=== PATIENT | female | born 1950 | race Caucasian/White ===

== ENCOUNTER 2018-05-03 07:49 | Inpatient (IN) ==
--- NOTE | 2018-05-02 18:00 | MH ---
cc: Red Fabian MD DATE OF ADMISSION: 05/03/2018 ADMITTING DIAGNOSIS: Osteoarthritis of the right knee. HISTORY OF PRESENT ILLNESS: The patient is a 67-year-old white female who has experienced pain of her right knee of at least 1-1/2 years' duration. She had initially presented to the undersigned physician in 08/2016 complaining of pain about her right knee unrelated to injury or unusual activity. She had undergone previous orthopedic evaluation at that time. X-ray studies apparently reported chondrocalcinosis, but otherwise no significant abnormality being identified. She was treated with a cortisone injection and prescribed physical therapy, but experienced persistent pain about her knee, for which she later underwent an MRI scan evaluation and was diagnosed as having a complex tear of the lateral meniscus with chondromalacia and effusion, and pain about her right knee. The patient underwent arthroscopic surgery in 08/2016 and initially was able to experience some trend of improvement, but with the passage of time she began to note a gradual recurrence of pain about her right knee that began to interfere with all activities of daily living. She returned to the office in the more recent past, indicating that she was having ongoing difficulty about her right knee and felt that she was ready to proceed with a more definitive course of treatment. Her x-ray studies did confirm the presence of an arthritic involvement, especially involving the lateral compartment, for which treatment options were reviewed. The pros and cons of continuing with conservative management versus operative intervention that would involve total knee arthroplasty were outlined in detail. Emphasis was again made regarding the fact that the decision to proceed with surgery would be left entirely to the patient's discretion. The patient readily admitted that she felt she had progressed to that point in time and was ready to proceed accordingly and, in compliance with her wishes, she was scheduled for admission in order that the above be accomplished. PAST MEDICAL HISTORY, HOSPITALIZATIONS, AND SURGERIES: In addition to the arthroscopic surgery of her right knee as described, have included lumbar fusion, abdominal hysterectomy, reduction mammoplasty, tonsillectomy, colonoscopy, bilateral cataract excisions, laparoscopic cholecystectomy, and medical management of a TIA without associated with residual. MEDICAL ILLNESSES: Include hypothyroidism, elevated cholesterol, and acid reflux. CURRENT MEDICATIONS: 1. L-thyroxine 175 mcg daily. 2. Wellbutrin 150 mg twice daily. 3. Lovastatin 20 mg daily. 4. Flonase 50 mg 2 sprays to each nostril daily. 5. Ipratropium 0.06% 1 spray to each nostril daily. 6. Chewable aspirin 81 mg daily. 7. Wild Yam 220 mg 1-2 times daily. ALLERGIES: THE PATIENT INDICATES MULTIPLE DRUG ALLERGIES INCLUDING PERCOCET, WHICH HAS CAUSED ITCHING; ERYTHROMYCIN AND SULFA WELL PENICILLIN HAVE CAUSED A RASH FORMATION. THE PATIENT HAS TOLERATED CODEINE FOR PAIN MANAGEMENT AND INDICATES NO PRIOR HISTORY OF PROBLEMS WITH MORPHINE WELL. REVIEW OF SYSTEMS: She does wear glasses. No headache, seizure, or syncope. Sinus congestion secondary to environmental agents. No epistaxis. Diminished auditory acuity. No tinnitus. No bleeding gums or dysphagia. No cough, shortness of breath, upper respiratory infection, pneumonia, or tuberculosis. No angina or heart disease. Appetite good. Bowel movements regular. No hepatitis, ulcers, or hemorrhoids. She is status post cholecystectomy. Positive history for urinary tract infection, kidney stones with spontaneous passage, fracture right ankle, and previous psychiatric intervention for depression. Her remaining review of systems is unremarkable and noncontributory. FAMILY HISTORY: 50 years, 68 years of age and in good health. One son and 1 daughter indicated to be in good health. FAMILY HISTORY: Positive for diabetes, heart disease, and lung cancer. SOCIAL HISTORY: The patient completed a high school education with vocational training thereafter. She has been employed as a nurse. Denies active use of tobacco for greater than 25 years, but had been a 15-20 year user in the past. Ethanol consumption on an occasional basis. PHYSICAL EXAMINATION: VITAL SIGNS: Height 5 feet 3 inches, weight 188 pounds. GENERAL: An alert, oriented, responsive 67-year-old white female who sits quietly upon the examination table with no apparent distress. HEAD, EARS, EYES, NOSE, AND THROAT: Pupils are equally round and reactive to light. Extraocular movements full. Sclerae are clear. External nares clear. External auditory canals clear. Dental intact. Mucous membranes pink and moist. Pharynx clear. NECK: Supple. Active range of motion with no appreciable pain. Carotid pulses palpable bilaterally. Trachea midline. Thyroid without enlargement. LUNGS: Clear to auscultation and percussion. No CVA tenderness. No discomfort throughout the dorsal lumbar spine. HEART: Regular rate and rhythm. No murmur or gallop. ABDOMEN: Soft, nontender, bowel sounds present. PELVIC: Per primary care physician. EXTREMITIES: Right knee, no obvious swelling or effusion. There is slight lateral joint line tenderness without palpable deformity. Apprehension and compression sign negative. A [id number] range of motion with discomfort at the extreme of flexion. No associated crepitation. No collateral ligamentous laxity. Jigna test and drawer sign negative. Pivot shift and Shea's sign positive for lateral compartment pain. Straight leg raising unremarkable at 80 degrees. Satisfactory mobility of the right hip with no associated pain. Mild antalgic gait. NEUROLOGIC: Cranial nerves 2-12 grossly intact. IMPRESSION: Osteoarthritis, right knee. PLAN: Right total knee arthroplasty: The nature of the planned surgical procedure, the potential complications and risks associated, the expectations of surgery, and the consent form were thoroughly reviewed with the patient in the presence of her prior to admission to the hospital. Kiarra has indicated her full understanding regarding all of the above and given consent to proceed with treatment as outlined. Medical evaluation and clearance for surgery completed by her primary care physician, Dr. Resendez. MD ELLIOT Yu/mendez/philip , 05:00 PM , 05:13 PM
[2018-05-03] MEDS ORDERED: Chlorhexidine Gluconate 2% 1 Pack (2 Cloths) TOPICAL SCH (08:30)
[2018-05-03] MEDS ORDERED: Metoprolol Tartrate 25 MG Tablet PO SCH (08:30)
[2018-05-03] MEDS ORDERED: Bupivacaine Liposomal PF 1.3% Inj 20 ML Vial ONE (08:34)
[2018-05-03] MEDS ORDERED: Vancomycin Inj 1 GM/200 ML PIGGYBACK IV.SIG SCH (09:00)
[2018-05-03] MEDS ORDERED: Sodium Chlor 0.9% Inj 500 ML IV.SIG SCH (09:00)
[2018-05-03] MEDS ORDERED: fentaNYL Citrate Inj 250 MCG/5 ML Ampul ONE (09:38)
[2018-05-03] MEDS ORDERED: fentaNYL Citrate Inj 100 MCG/2 ML Ampul ONE (09:38)
[2018-05-03] MEDS ORDERED: Famotidine PF Inj 20 MG/2 ML Vial ONE (09:38)
[2018-05-03] MEDS ORDERED: Bupivacaine PF 0.5% Inj 30 ML Vial ONE (09:41)
[2018-05-03] MEDS ORDERED: ROPIVACAINE 0.5% P-ARTICULR SCH ×5 (10:00)
[2018-05-03] MEDS ORDERED: Tranexamic Acid Inj 1,000 MG in Sodium Chlor 0.9% Inj 100 ML IV.SIG SCH ×2 (10:00→13:00)
[2018-05-03] MEDS ORDERED: KETOROLAC P-ARTICULR SCH ×5 (10:00)
[2018-05-03] MEDS ORDERED: SODIUM CHLOR 0.9% P-ARTICULR SCH ×5 (10:00)
[2018-05-03] MEDS ORDERED: [UNRECOGNIZED DRUG - OTHER] P-ARTICULR SCH ×5 (10:00)
[2018-05-03] MEDS ORDERED: Ketorolac Inj 30 MG/ML (IVP) Vial IV.PUSH ONE (12:00)
[2018-05-03] MEDS ORDERED: Neostigmine Inj 5 MG/5 ML Syringe IV.PUSH ONE (12:00)
[2018-05-03] MEDS ORDERED: Lidocaine PF 1% Inj 5 ML Syringe INFILTRATN ONE (12:00)
[2018-05-03] MEDS ORDERED: Labetalol HCl Inj 100 MG/20 ML Vial IV.CONT ONE (12:00)
[2018-05-03] MEDS ORDERED: Glycopyrrolate Inj 1 MG/5 ML Syringe IV.PUSH ONE (12:00)
[2018-05-03] MEDS ORDERED: Bisacodyl 10 MG Supp RECTAL PRN (12:39)
[2018-05-03] MEDS ORDERED: Aluminum/Magnesium/Simethacone Susp 30 ML UDC PO PRN (12:39)
[2018-05-03] MEDS ORDERED: Post-op Orders (for Pharmacy) OTHER STA (12:39)
[2018-05-03] MEDS ORDERED: Tranexamic Acid Inj 1,000 MG in Sodium Chlor 0.9% Inj 100 ML IV.SIG ONE (12:39)
[2018-05-03] MEDS ORDERED: Acetaminophen 325 MG Tablet PO PRN (12:39)
[2018-05-03] MEDS ORDERED: Naloxone Inj 0.4 MG/ML Vial IV.PUSH PRN ×2 (12:39→14:17)
[2018-05-03] MEDS ORDERED: *morphine SULFATE 4 MG/ML PERIprocedure ONLY ONE (13:00)
[2018-05-03] MEDS ORDERED: Morphine Inj 30 MG/30 ML PCA.VIAL PCA ONE (13:13)
--- NOTE | 2018-05-03 13:26 | MP ---
cc: Red Fabian MD DATE OF OPERATION: 05/03/2018 DATE OF PROCEDURE: 05/03/2018 PREOPERATIVE DIAGNOSIS: Osteoarthritis, right knee. POSTOPERATIVE DIAGNOSIS: Osteoarthritis, right knee. OPERATION: Right total knee arthroplasty. SURGEON: Red Fabian MD ANESTHESIA: General endotracheal. INDICATIONS: A 67-year-old white female with a 1-1/2-year history of right knee pain, onset being unrelated to injury or unusual activity. She had undergone previous orthopedic evaluation and initially was diagnosed as having chondrocalcinosis. She was treated with cortisone injection and prescribed physical therapy, but experienced persistent pain and later completed an MRI scan, being diagnosed as having a complex tear of the lateral meniscus with chondromalacia and effusion and pain of the knee. She subsequently underwent arthroscopic surgery in 2016 and initially was able to experience some trend of improvement, but with the passage of time began to note gradual recurrence of pain that began to interfere with all activities of daily living. She had returned to the office more recently indicating that she was having ongoing difficulty about her right knee and felt that she was ready to proceed with a more definitive course of treatment. Her x-ray studies confirmed the presence of arthritic involvement, especially about the lateral compartment, for which treatment options were reviewed. The pros and cons of continuing with conservative management versus operative intervention that would involve total knee arthroplasty were outlined in detail. Emphasis was made regarding the fact that the decision to proceed with surgery would be left entirely to the patient's discretion. The patient readily admitted that she had progressed to that point in time, was ready to proceed accordingly and in compliance with her wishes she was scheduled for admission in order that the above be accomplished. FORMAT: Following the induction of satisfactory general anesthesia by endotracheal intubation as completed per the Department of Anesthesia, a tourniquet was established around the proximal portion of the right lower extremity. The extremity proper was isolated with a U-drape, thereafter being prepped with Betadine solution and draped into a sterile field in the routine manner. Prior to initiation of the actual procedure, the standard timeout protocol was completed. All parameters were appropriately addressed and confirmed by operating room personnel. The extremity was elevated for approximately 1 minute and the tourniquet thus inflated to 250 mmHg pressure. A sharp skin incision was initiated midline over the anterior aspect of the knee and developed through underlying subcutaneous tissue with hemostasis maintained by electrocautery. By deepening dissection, the anterior capsule was exposed, the medial capsulotomy completed and the patella subluxed in a lateral orientation. Examination of the joint space revealed tricompartmental degenerative changes, especially being most pronounced about the lateral compartment where there was significant erosion of articular cartilage primarily involving the femoral condyle but to a lesser degree the tibial plateau. The articular surface of the patella was resected with power saw. The 3-hole guide was utilized for establishing post-holes. The anterior cruciate ligament as well as medial and lateral meniscus structures were sharply excised. A centering hole was placed in the distal aspect of the femur, allowing positioning of the intramedullary guide. The distal femoral cutting jig was attached and the distal femur resected. AP measurement noted 62.5 mm sizing to be appropriate. The matching cutting block was positioned. Anterior, posterior and chamfer cuts were completed. The tibial plateau was thereafter subluxed in an anterior orientation allowing positioning of the extramedullary guide. The tibial plateau was resected and measured with 71 mm sizing determined to be satisfactory. Trial reduction followed utilizing a 62.5 mm anatomic femoral component, a 71 mm tibial base with a 10 mm bearing insert. The knee was readily brought to full extension. There was no laxity with varus or valgus stress at both 0 and 90 degrees flexed posture. Orientation was confirmed as being appropriate with measurement of the pelvic guide through the mechanical access of the knee. A trial reduction followed utilizing a 31 mm standard patellar button, once again good tracking noted with no tendency towards subluxation. All trial components being removed, the remaining portion of the proximal tibia was prepared for insertion of the permanent component. The joint space was thoroughly lavaged with pulsating antibiotic solution, hemostasis maintained by electrocautery. An autogenous bone plug was inserted into the distal femoral guide hole and thereafter a preparation of [place] bone cement was utilized in inserting knee components in a sequential fashion, which included a 71 mm fixed cruciate tibial plate to which a 10 mm Vanguard tibial bearing insert was secured with locking brock. The 62.5 mm Vanguard femoral component was firmly seated onto the distal femur, excess cement being removed. The knee was brought to full extension and thereafter, the 31 mm standard 3 post-patellar button was attached and maintained in place with patellar clamp while cement hardening was completed. Final range of motion assessment noted good tracking and stability throughout the knee. Irrigation was repeated with hemostasis maintained. Autovac drain tubes were inserted through superior stab wounds. The capsule was repaired with 0 Vicryl suture. The remaining portion of the wound was closed in layers in the routine manner, skin margins being reapproximated with a running subcuticular 3-0 Vicryl suture over which Steri-Strips were applied. Xeroform gauze and a bulky dry sterile dressing were placed. The tourniquet was deflated after 40 minutes of tourniquet time, the extremity being supported in a canvas knee splint. Anesthesia was discontinued. She was thereafter transferred to a hospital bed and returned to the recovery room in satisfactory condition, having tolerated her operative procedure well. Estimated blood loss was approximately 100 mL as determined per Anesthesia. All implants were of the [employer] bag machine adjuster. MD ELLIOT Yu/SB , 12:23 PM , 01:13 PM
--- NOTE | 2018-05-03 13:35 | XR ---
EXAM DATE: 05/03/2018 1:20 PM EDT AGE/SEX: 67 years / Female INDICATIONS: Post op. Right total knee replacement. CLINICAL DATA: This is the patient's initial encounter. Patient reports that signs and symptoms have been present for 1 day and indicates a pain score of 9/10. MEDICAL/SURGICAL HISTORY: None. None. COMPARISON: POI, XR KNEE COMPLETE, RIGHT, 07/15/2016. . FINDINGS: AP and lateral views of the knee were obtained and demonstrate the patient is status post arthroplast y. The distal femoral and tibial components are intact and in normal alignment. There are postoperati ve changes involving the patella. Surgical drains are noted anteriorly with soft tissue swelling. CONCLUSION: SPECT the postoperative changes status post arthroplasty. Electronically signed by: Abdiaziz Sharp MD 05/03/2018 1:34 PM EDT
[2018-05-03] MEDS ORDERED: Morphine Inj 30 MG/30 ML PCA.VIAL PCA PRN (14:30)
[2018-05-03] MEDS ORDERED: ATROVENT 0.06% NASAL PRN (15:00)
--- NOTE | 2018-05-03 17:34 | P.CON ---
History of Present Illness Service: Orthopedic service Consult date: 05/03/18 Requesting Physician: Red Fabian Reason for Consult: Medical management Primary Care Provider: Juan Carlos Wallace MD Chief Complaint: Right knee pain History of Present Illness: Patient is a very pleasant 67-year-old female with history of hypothyroidism, depression, hyperlipidemia with history of osteoarthritis of the right knee who was admitted under orthopedic service today and underwent right total knee arthroplasty. Per patient patient has been dealing with this pain the right knee on and off for the past 2 years. In the past had arthroscopic surgery. Patient still independent with ADLs and walking however increasing pain in lately with walking prompted this procedure. [facility] consulted for medical management. Review of Systems Constitutional: Denies anorexia, Denies body ache(s), Denies chills, Denies daytime sleepiness, Denies excessive sweating, Denies fatigue, Denies fever(s), Denies headache(s), Denies increased appetite, Denies lack of energy, Denies malaise, Denies night sweats, Denies weakness, Denies weight gain, Denies weight loss, Denies other Eyes: Denies blind spots, Denies blurry vision, Denies bulging eyes, Denies change in vision, Denies double vision, Denies discharge, Denies dry eyes, Denies floaters, Denies irritation, Denies itchy eyes, Denies loss of vision, Denies pain, Denies requires corrective lenses, Denies sensitivity to light, Denies other Ears, Nose, Mouth, and Throat: Denies abnormal hearing, Denies bleeding gums, Denies bad breath, Denies change in voice, Denies dental pain, Denies difficulty swallowing, Denies dizziness, Denies dry mouth, Denies ear discharge , Denies ear pain, Denies facial pain, Denies headache(s), Denies hearing loss, Denies hoarseness, Denies lip swelling, Denies nosebleed, Denies mouth lesions, Denies mouth pain, Denies nasal congestion, Denies nasal discharge, Denies nasal obstruction, Denies nasal trauma, Denies neck lump, Denies neck pain, Denies nose pain, Denies pain with swallowing, Denies poor balance, Denies post nasal drip, Denies ringing in the ears, Denies sinus pain, Denies sinus pressure , Denies sore throat, Denies throat swelling, Denies tongue swelling, Denies other Respiratory: Denies change in phlegm color, Denies chest congestion, Denies cough, Denies coughing up blood, Denies excessive phlegm production, Denies pain on inspiration, Denies pain with cough, Denies shortness of breath, Denies shortness of breath with activity, Denies snoring, Denies stridor, Denies wheezing, Denies other Gastrointestinal: Denies abdominal pain, Denies belching, Denies black, tarry stools, Denies bloating, Denies bright, red blood in stools, Denies change in bowel habits, Denies constant urge to pass stool, Denies change in stools, Denies coffee ground vomit, Denies constipation, Denies cramping, Denies difficulty swallowing, Denies excessive passing of gas, Denies feeling full early, Denies heartburn, Denies incontinent of stools, Denies loose stools, Denies nausea, Denies pain with swallowing, Denies vomiting, Denies vomiting blood, Denies other Comments: With occasional reflux symptoms. Genitourinary: Denies abnormal periods, Denies abnormal vaginal bleeding, Denies absent period, Denies bleeding between periods, Denies blood in urine, Denies difficulty starting urination, Denies difficulty urinating, Denies dribbling after urination, Denies frequent nighttime urination, Denies genital itching, Denies genital lesions, Denies heavy periods, Denies hot flashes, Denies light periods, Denies nipple discharge, Denies painful intercourse, Denies painful periods, Denies painful urination, Denies pelvic pain, Denies prolapse symptoms, Denies sexual problems, Denies side pain, Denies urinary incontinence, Denies urinary urgency, Denies vaginal discharge, Denies vaginal dryness, Denies vaginal odor, Denies vaginal itching, Denies other Musculoskeletal: Reports joint pain (Right knee pain worsening) Skin/Breast: Denies acne, Denies bleeding lesions, Denies boil, Denies breast swelling, Denies breast skin changes, Denies breast pain, Denies breast lump, Denies change in breast shape, Denies change in hair, Denies change in skin color, Denies changing lesions, Denies dry skin, Denies excessive hair growth, Denies hair loss, Denies itching, Denies lesions, Denies nail changes, Denies new lesions, Denies nipple discharge, Denies non-healing lesions, Denies redness , Denies sensitivity to light, Denies rash, Denies skin pain, Denies skin ulcer , Denies sores, Denies stretch silva, Denies unusual bruising, Denies wounds, Denies yellowing of the skin, Denies other Neurologic: Denies abnormal hearing, Denies abnormal movements, Denies abnormal speech, Denies abnormal walking, Denies behavioral changes, Denies burning sensations, Denies confusion, Denies dizziness, Denies fainting, Denies frequent falls, Denies headache(s), Denies lack of coordination, Denies localized weakness, Denies loss of vision, Denies memory loss, Denies numbness, Denies other visual disturbances, Denies radiating pain, Denies restless legs, Denies convulsions, Denies seizure-like activity, Denies sensory deficit, Denies tingling, Denies tingling/numbness/burning sensations, Denies tremor(s), Denies unsteadiness, Denies weakness, Denies other Psychiatric: Denies abnormal sleep pattern, Denies anxiety, Denies behavioral changes, Denies change in appetite, Denies change in sex drive, Denies confusion , Denies depression, Denies difficulty concentrating, Denies hearing things others do not hear, Denies hopelessness, Denies irritability, Denies lack of enjoyment, Denies memory loss, Denies mood swings, Denies panic attacks, Denies paranoia, Denies seeing things others do not see, Denies sensing things others do not sense, Denies tactile hallucinations, Denies thoughts of hurting/killing others, Denies thoughts of hurting/killing yourself, Denies other Endocrine: Denies cold intolerance, Denies excessive sweating, Denies flushing, Denies heat intolerance, Denies increased hunger, Denies increased thirst, Denies increased urination, Denies rapid, pounding, or irregular heartbeat, Denies other Hematologic/Lymphatic: Denies easy bleeding (Nasal allergy), Denies easy bruising, Denies enlarged lymph nodes, Denies other PMFSH - History History Provided By: Patient - Medical / Surgical Hx Neg / Unobtainable Medical Problems Denied: Yes - Medical History Medical History: Medical History (Last Reviewed 05/03/18 @ 16:58 by Lisa Dorantes PT) Arthritis Depression GERD (gastroesophageal reflux disease) H/O recurrent transient ischemic attacks High cholesterol History of right tennis elbow Seasonal allergies Thyroid disease - Surgical History Surgical History: Surgical History (Last Reviewed 05/03/18 @ 16:58 by Lisa Dorantes, PT) H/O hand surgery H/O arthroscopy of right knee H/O bilateral breast reduction surgery H/O spinal fusion History of bilateral carpal tunnel release History of cholecystectomy History of partial hysterectomy History of tonsillectomy Status post cataract extraction of both eyes with insertion of intraocular lens - Tobacco History Second Hand Smoke Exposure: No Tobacco Use In Past 30 Days: Yes (Quit 20 years ago) Smoking Status: Former smoker Tobacco Type: Cigarettes - Alcohol History How Often Do You Have a Drink Containing Alcohol: 2 to 4 times a month - Substance Use History Substance History: No History of Abuse - Travel History Recent Travel in the [place] Within the Last 8 Weeks: No Recent Travel Out of the Country Within the Last 8 Weeks: No Medications and Allergies Active Medications: Active Medications Acetaminophen (Tylenol) 650 mg PO Q6H PRN PRN Reason: FEVER > 102 F Hydrocodone Bitart/Acetaminophen ([place] 5/325) 1 tab PO Q4H PRN PRN Reason: PAIN LESS THAN 5 ON SCALE Hydrocodone Bitart/Acetaminophen ([place] 5/325) 2 tab PO Q6H PRN PRN Reason: PAIN SCALE 5 TO 10 Al Hydrox/Mg Hydrox/Simethicone (Mag-Al Plus Susp Liq) 30 ml PO Q6H PRN PRN Reason: INDIGESTION Al Hydroxide/Mg Hydroxide (Milk Of Magnesia Liq) 30 ml PO BID PRN PRN Reason: Mild Constipation Aspirin (Aspirin) 325 mg PO BID [facility] Bisacodyl (Dulcolax Supp) 10 mg RECTAL DAILY PRN PRN Reason: SEVERE CONSITIPATION Bupropion HCl (Wellbutrin Sr) 150 mg PO DAILY [facility] Chlorhexidine Gluconate (Chlorhexidine 2% Cloth) 3 pack TOPICAL TESTING DIRECTOR [facility] Stop: 05/06/18 08:29 Last Admin: 05/03/18 08:30 Dose: 3 pack Fluticasone Propionate (Flonase Nasal Immaculata) 2 spray EACH NARE DAILY [facility] Lactated Ringer's (Lr 1000 Ml Inj) 1,000 mls @ 30 mls/hr IV.SIG .Q24H [facility] Stop: 05/06/18 08:29 Last Infusion: 05/03/18 11:04 Dose: Infused Sodium Chloride (Ns Inj) 500 mls @ 30 mls/hr IV.SIG .Q10H [facility] Stop: 05/06/18 08:29 Tranexamic Acid 1,000 mg/ (Sodium Chloride) 110 mls @ 200 mls/hr IV.SIG ONCE [facility] Stop: 05/03/18 18:59 Last Admin: 05/03/18 13:20 Dose: 200 mls/hr Vancomycin/Sodium Chloride (Vancomycin Inj) 1 gm in 200 mls @ 200 mls/hr IV.SIG TESTING DIRECTOR [facility] Stop: 05/07/18 08:59 Last Infusion: 05/03/18 11:04 Dose: Infused Lactated Ringer's (Lr 1000 Ml Inj) 1,000 mls @ 80 mls/hr IV.CONT .[id number] [facility] Last Admin: 05/03/18 13:26 Dose: 80 mls/hr Vancomycin HCl 1,000 mg/ (Sodium Chloride) 250 mls @ 250 mls/hr IV.SIG Q12H [facility] Stop: 05/04/18 10:59 Morphine Sulfate (Morphine Inj) 30 mg in 30 mls @ 0 mls/hr FOREIGN EXCHANGE POSITION CLERK UNSCH PRN PRN Reason: per FOREIGN EXCHANGE POSITION CLERK parameters Stop: 05/04/18 14:29 Last Admin: 05/03/18 13:09 Dose: 0 mls/hr Lactulose (Lactulose Liq) 30 ml PO DAILY PRN PRN Reason: SEVERE CONSITIPATION Levothyroxine Sodium (Synthroid) 150 mcg PO DAILY@0600 [facility] Levothyroxine Sodium (Synthroid) 25 mcg PO DAILY@0600 [facility] Metoprolol Tartrate (Lopressor) 25 mg PO TESTING DIRECTOR [facility] Stop: 05/06/18 08:29 Miscellaneous Information (Misc Nursing Information) 0 each OTHER UNSCH PRN PRN Reason: SEE DOSE INSTRUCTIONS Miscellaneous Information (Misc Nursing Information) 1 each OTHER UNSCH PRN PRN Reason: SEE LABEL COMMENTS Stop: 05/04/18 12:16 Naloxone HCl (Narcan Inj) 0.4 mg IV.PUSH UNSCH PRN PRN Reason: Resp rate < 10 Ondansetron HCl (Zofran Inj) 4 mg IV.PUSH Q6H PRN PRN Reason: NAUSEA OR VOMITING Patient Own Medication: Atrovent (Ipratropium [place]) 0.06% Nasal Immaculata 0 each NASAL TID PRN PRN Reason: ALLERGIES/NASAL CONGESTION Povidone Iodine (Betadine 5% Antisepsis Kit) 1 applicatio EACH NARE TESTING DIRECTOR [facility] Stop: 05/06/18 08:29 Last Admin: 05/03/18 08:45 Dose: 1 applicatio Povidone Iodine (Betadine 7.5% Scrub) 1 applicatio TOPICAL ONCE [facility] Stop: 05/07/18 08:59 Pravastatin Sodium (Pravachol) 20 mg PO HS [facility] Senna/Docusate Sodium (Rosana-Colace) 1 tab PO BID [facility] Sennosides (Senokot) 17.2 mg PO BID PRN PRN Reason: Moderate Constipation Sodium Chloride (Ns Flush) 2 ml IV.FLUSH BID [facility] Sodium Chloride (Ns Flush) 2 ml IV.FLUSH UNSCH PRN PRN Reason: FLUSH AFTER USING IV ACCESS Zolpidem Tartrate (Ambien) 5 mg PO HS PRN PRN Reason: INSOMNIA Allergies Allergy/AdvReac Type Severity Reaction Status Date / Time erythromycin base Allergy Severe Hives Verified 05/03/18 08:36 hepatitis B virus vaccine Allergy Severe Hives Verified 05/03/18 08:36 hepatitis B virus vaccine, Allergy Severe Hives Verified 05/03/18 08:36 recombin oxycodone Allergy Severe CRAZY Verified 05/03/18 08:36 penicillin G Allergy Severe Hives Verified 05/03/18 08:36 Sulfa (Sulfonamide Allergy Severe Hives Verified 05/03/18 08:36 Antibiotics) Home Medications Medication Instructions Recorded Confirmed Type aspirin 81 mg PO DAILY 04/27/18 05/03/18 History bupropion HCl 150 mg PO QAM 04/27/18 05/03/18 History fluticasone [Flonase Allergy 2 spray INTRANASAL DAILY 04/27/18 05/03/18 History Relief] ipratropium bromide 2 spray INTRANASAL TID PRN 04/27/18 05/03/18 History levothyroxine 175 mcg PO DAILY 04/27/18 05/03/18 History lovastatin 20 mg PO HS 04/27/18 05/03/18 History Physical Exam Vital signs: Vital Signs 05/03/18 08:43 05/03/18 09:40 05/03/18 12:18 Temperature 98.5 F 96.6 F L Pulse Rate 72 88 Respiratory Rate 20 10 L Blood Pressure 132/84 123/59 L Pulse Oximetry 99 99 100 05/03/18 16:00 Temperature 97.5 F L Pulse Rate 63 Respiratory Rate 22 Blood Pressure 103/57 L Pulse Oximetry 96 Intake & Output 05/02/18 05/03/18 05/03/18 18:59 06:59 18:59 Intake Total 1310 / 1310 Output Total 100 / 100 Balance 1210 / 1210 Weight 86.3 kg Intake: IV 1310 / 1310 LR 1000 mL Inj 1,000 ML @ 30 1000 / 1000 mls/hr IV.SIG .Q24H [facility] Rx#: [id number] Cyklokapron Inj 1,000 MG In NS 110 / 110 Inj 100 ML @ 200 mls/hr IV.SIG ONCE [facility] Rx#:[id number] Vancomycin Inj 1 gm In 200 ml @ 200 / 200 200 mls/hr IV.SIG TESTING DIRECTOR [facility] Rx#:[id number] Anesthesia Amount 0 / 0 Output: Estimated Blood Loss 100 / 100 Other: Weight On Admission 86.3 kg Narrative: Patient is awake alert oriented 3 not in any form of distress Anicteric Neck was supple no bruit no rigidity Chest lungs clear breath sounds no rales no wheezes Heart regular rhythm no murmur Abdomen soft with good bowel sounds Extremities right lower extremity with postop dressing in place Able to move both feet no calf swelling or tenderness Neurologic exam unremarkable Assessment and Plan - Plan 67-year-old female Status post right total knee arthroplasty 05/03- for severe osteoarthritis Orthopedic service is following As needed pain meds per primary service History of hypothyroidism continue on Synthroid. History of depression continue Wellbutrin 150 twice a day History of hyperlipidemia continue lovastatin 20 mg daily History of nasal allergy continue on Flonase nasal spray Aspirin 325 mg twice daily for DVT prophylaxis Start Protonix 40 mg daily for GI prophylaxis. states history of GERD was on Prevacid in the past. PT daily Case management consulted patient prefers to go home with home PT-prefers [facility] Thank you for this consult will follow patient in-house with
[2018-05-03] MEDS: Senna/Docusate Sodium 8.6/50 MG Tablet PO SCH (20:14)
[2018-05-03] MEDS: buPROPion 150 MG 12 HR Tablet PO SCH (20:14)
[2018-05-03] MEDS: Aspirin 325 MG Tablet PO SCH (20:14)
[2018-05-03] MEDS ORDERED: Zolpidem Tartrate 5 MG Tablet PO PRN (21:00)
[2018-05-03] MEDS: Vancomycin Inj 1,000 MG in Sodium Chlor 0.9% Inj 250 ML IV.SIG SCH (21:48)
[2018-05-04] MEDS: Levothyroxine 150 MCG Tablet PO SCH (05:11)
[2018-05-04 06:33] LABS: Hematocrit 38.1 % (35.0-46.0); Hemoglobin 12.7 gm/dL (11.6-15.3)
--- NOTE | 2018-05-04 08:34 | P.PN ---
Subjective Interval history: awake and alert , taking po well, voiding + pain post op knee- pain meds helping states she was already up and walker with walker when d/w spirometry- "can't get it to move" motivated with physical therapy Physical Exam Vital signs: Vital Signs 05/03/18 08:43 05/03/18 09:40 05/03/18 12:18 Temperature 98.5 F 96.6 F L Pulse Rate 72 88 Respiratory Rate 20 10 L Blood Pressure 132/84 123/59 L Pulse Oximetry 99 99 100 05/03/18 12:30 05/03/18 12:45 05/03/18 13:00 Temperature Pulse Rate 87 81 69 Respiratory Rate 16 12 14 Blood Pressure 166/79 H 158/74 H 145/62 H Pulse Oximetry 99 97 98 05/03/18 13:15 05/03/18 13:30 05/03/18 14:00 Temperature Pulse Rate 68 63 60 Respiratory Rate 12 14 14 Blood Pressure 141/67 H 142/68 H 135/64 Pulse Oximetry 100 96 97 05/03/18 15:00 05/03/18 15:45 05/03/18 16:00 Temperature 98.1 F 97.5 F L Pulse Rate 78 82 63 Respiratory Rate 14 14 22 Blood Pressure 139/65 123/58 L 103/57 L Pulse Oximetry 99 99 96 05/03/18 20:00 05/04/18 00:00 05/04/18 04:00 Temperature 97.3 F L 98 F 97.4 F L Pulse Rate 59 L 65 76 Respiratory Rate 20 18 20 Blood Pressure 101/56 L 131/67 163/76 H Pulse Oximetry 98 99 97 Intake & Output 05/03/18 05/04/18 05/04/18 18:59 06:59 18:59 Intake Total 1658 / 1658 250 / 250 Output Total 130 / 130 60 / 60 Balance 1528 / 1528 190 / 190 Weight 86.3 kg 92.3 kg Intake: IV 1538 / 1538 250 / 250 LR 1000 mL Inj 1,000 ML @ 80 118 / 118 mls/hr IV.CONT .[id number] [facility] Rx# :[id number] LR 1000 mL Inj 1,000 ML @ 30 1000 / 1000 mls/hr IV.SIG .Q24H [facility] Rx#: [id number] Cyklokapron Inj 1,000 MG In NS 220 / 220 Inj 100 ML @ 200 mls/hr IV.SIG ONCE [facility] Rx#:[id number] Vancomycin Inj 1 gm In 200 ml @ 200 / 200 200 mls/hr IV.SIG NON PROFIT FINANCIAL CONTROLLER [facility] Rx#:[id number] Vancomycin Inj 1,000 MG In NS 250 / 250 Inj 250 ML @ 250 mls/hr IV.SIG Q12H [facility] Rx#:[id number] Oral 120 / 120 Anesthesia Amount 0 / 0 Output: Urine 0 / 0 Estimated Blood Loss 100 / 100 Wound Drainage 30 / 30 60 / 60 Right Knee 30 / 30 60 / 60 Other: # Voids 1 1 Date of Last Bowel Movement 05/02/18 Weight On Admission 86.3 kg Narrative: awake alert oriented 3 not in any form of distress Anicteric Chest lungs clear breath sounds no rales no wheezes Heart regular rhythm no murmur Abdomen soft with good bowel sounds Right knee with postop dressing in place Able to move both feet no calf swelling or tenderness Neurologic exam unremarkable Results - Labs CBC & Chem 7: 05/04/18 05:24 Laboratory Results - last 24 hr 05/03/18 05/04/18 08:57 05:24 Hgb 12.7 Hct 38.1 Blood Type A Positive Blood Type Recheck Required Antibody Screen Negative - Imaging Impressions Knee X-Ray 05/03/18 12:35 CONCLUSION: SPECT the postoperative changes status post arthroplasty. - Procedures 05/03- right total knee replacement Assessment and Plan - Plan 67-year-old female Status post right total knee arthroplasty 05/03- for severe osteoarthritis Orthopedic service is following As needed pain meds per primary service History of hypothyroidism continue on Synthroid. History of depression continue Wellbutrin 150 twice a day History of hyperlipidemia continue lovastatin 20 mg daily History of nasal allergy continue on Flonase nasal spray Aspirin 325 mg twice daily for DVT prophylaxis Start Protonix 40 mg daily for GI prophylaxis. states history of GERD was on Prevacid in the past. PT daily Case management consulted patient prefers to go home with home PT-prefers [facility] instructed patient on proper use of Incentive spirometer- hourly also d/w staff nurse to reinforce
[2018-05-04] MEDS ORDERED: Non-Formulary Drug (Levothyroxine [Levothyroxine] 175 MCG) PO SCH (09:00)
[2018-05-04] MEDS: buPROPion 150 MG 12 HR Tablet PO SCH (09:29)
[2018-05-04] MEDS: Aspirin 325 MG Tablet PO SCH ×2 (09:29→20:37)
[2018-05-04] MEDS: Senna/Docusate Sodium 8.6/50 MG Tablet PO SCH ×2 (09:29→20:37)
[2018-05-04] MEDS: Vancomycin Inj 1,000 MG in Sodium Chlor 0.9% Inj 250 ML IV.SIG SCH (09:32)
[2018-05-05] MEDS ORDERED: Sod Phosphate/Sod Biphosphate (Adult) Enema 133 ML Bottle RECTAL ONE (01:00)
[2018-05-05] MEDS: Levothyroxine 150 MCG Tablet PO SCH (06:17)
--- NOTE | 2018-05-05 06:25 | P.DCO ---
- Physical Therapy Physical Therapy: Gait training Knee: Total knee, Protocol: Right, Full weight bearing Right Lower Extremity Weight Bearing: Weight bearing as tolerated Right Lower Extremity Range of Motion: Active ROM - Nursing Dressing changes: Daily dressing change - Certification Need for Home Health services: I have seen patient Kiarra Veronica on 05/05/18. My clinical findings support the need for the requested home health care services because: Need for Home Health Services: Limited ability to care for self, High risk of falls Homebound Certification: I certify that my clinical findings support that this patient is homebound because: Homebound Certification: Post-op weakness, Unsteady gait/balance, Unsafe to leave home unassisted
--- NOTE | 2018-05-05 06:48 | MD ---
cc: Red Fabian MD, Souheil MD DATE OF DISCHARGE: 05/05/2018 ADMITTING DIAGNOSIS: Osteoarthritis of the right knee. DISCHARGE DIAGNOSES: Osteoarthritis of the right knee. HISTORY: A 67-year-old white female with a 1.5 year history of right knee pain as related to degenerative joint disease. She had conformed to conservative management in the past, which included cortisone injection, physical therapy and prescribed medication, unfortunately remaining symptomatic and having difficulty conforming to activities of daily living. A subsequent MRI scan did identify a complex tear of the lateral meniscus associated with chondromalacia and effusion. The patient had undergone previous arthroscopic surgery that initially did provide her with some trend of improvement, but with the passage of time, she became progressively more symptomatic with recurrent pain about the right knee that began to interfere with activities of daily living. She had returned to the office in the recent past, indicating she was having ongoing problems and felt she was ready to proceed with a more definitive course of treatment. Her x-ray studies confirm the presence of an arthritic involvement being most pronounced about the lateral compartment, for which treatment options were reviewed. The involvement of total knee arthroplasty was outlined with emphasis being made that the decision to proceed with surgery would be left entirely to the patient's discretion. The patient readily admitted that she felt her symptoms had progressed to a point in time where she was ready to proceed accordingly and in compliance with her wishes, she was scheduled for admission in order that the above be accomplished. Her physical examination revealed no obvious swelling or effusion about the right knee. There was lateral joint line tenderness without palpable deformity. Apprehension and compression sign were negative. A 0-105 degree range of motion with discomfort at the extreme of flexion. No associated crepitation. No collateral ligamentous laxity. Jigna test and drawer sign negative. Pivot shift and Shea sign positive for lateral compartment pain. Straight leg raising unremarkable at 80 degrees. Satisfactory mobility of the right hip with no associated pain. Mild antalgic gait. HOSPITAL COURSE: Prior to admission to the hospital, the patient had undergone medical evaluation and clearance for surgery as completed by her primary care physician, Dr. Wallace. She was taken to the operating room on 04/2018 and on that date underwent a right total knee arthroplasty completed in an uncomplicated manner. The patient was noted to have tolerated her operative procedure well. Her postoperative course, stable thereafter. Hemoglobin and hematocrit assessment postoperatively was 12.7 and 38.1 respectively. The patient was progressively mobilized under the guidance of physical therapy being permitted weightbearing to tolerance about the right lower extremity. Followup examination of her surgical wound noted to be intact healing favorably with no evidence of infection. Medical followup per the hospitalist service. DVT prophylaxis initiated. Electrical Machinist consulted to assist with discharge planning. The patient had expressed her desire to be discharged home and continue her rehabilitation on an outpatient basis. Plans were finalized in this regard and pending medical clearance, she was scheduled for discharge on the second postoperative day, at which time she was noted to be making favorable progress with regards to her initial rehabilitation. Hemoglobin and hematocrit assessment postoperatively was 12.7 and 38.1. She was scheduled to be seen in office followup in approximately 4 weeks. CONDITION AT THE TIME OF DISCHARGE: Stable. PROGNOSIS: Favorable. DISCHARGE MEDICATIONS: Included hydrocodone 5/325, #20. The patient was also instructed to begin taking aspirin 325 mg 1 tab twice daily for 3 weeks before she resumed her normal protocol of an 81 mg aspirin tablet daily. Red Fabian MD NBS/DL , 06:31 AM , 06:39 AM
[2018-05-05] MEDS: Aspirin 325 MG Tablet PO SCH (08:32)
[2018-05-05] MEDS: Senna/Docusate Sodium 8.6/50 MG Tablet PO SCH (08:33)
[2018-05-05] MEDS: buPROPion 150 MG 12 HR Tablet PO SCH (08:33)
--- NOTE | 2018-05-05 08:34 | P.PN ---
Subjective Interval history: al;ready up on chair good Incentive spirometry efforts Physical Exam Vital signs: Vital Signs 05/04/18 12:00 05/04/18 16:00 05/04/18 20:00 Temperature 97.9 F 97.7 F 98.2 F Pulse Rate 72 69 75 Respiratory Rate 16 16 Blood Pressure 131/58 L 115/53 L 134/59 L Pulse Oximetry 98 99 97 05/05/18 02:36 05/05/18 04:00 Temperature 98.8 F Pulse Rate 87 Respiratory Rate 15 18 Blood Pressure 140/58 L Pulse Oximetry 96 Intake & Output 05/04/18 05/05/18 05/05/18 18:59 06:59 18:59 Intake Total 730 / 730 Balance 730 / 730 Intake: IV 250 / 250 Oral 480 / 480 Other: # Voids 2 5 Date of Last Bowel Movement 05/02/18 05/02/18 05/02/18 Narrative: awake alert oriented 3 not in any form of distress Anicteric Chest lungs clear breath sounds no rales no wheezes Heart regular rhythm no murmur Abdomen soft with good bowel sounds Right knee with postop dressing in place Able to move both feet no calf swelling or tenderness Results - Labs CBC & Chem 7: 05/04/18 05:24 - Procedures 05/03- right total knee replacement Assessment and Plan - Plan 67-year-old female Status post right total knee arthroplasty 05/03- for severe osteoarthritis Orthopedic service is following As needed pain meds per primary service History of hypothyroidism continue on Synthroid. History of depression continue Wellbutrin 150 twice a day History of hyperlipidemia continue lovastatin 20 mg daily History of nasal allergy continue on Flonase nasal spray Aspirin 325 mg twice daily for DVT prophylaxis Start Protonix 40 mg daily for GI prophylaxis. states history of GERD was on Prevacid in the past. PT daily Case management consulted patient prefers to go home with home PT-prefers [facility] instructed patient to use Incentive spirometer- at home FF up with PCP- Dr. Mckeon as OP
== END 2018-05-05 12:19 | disposition home health service (06) ==
LOC: HSDI 07:49 → N06 16:06
PROVIDERS: ADMIT Orthopaedic Surgery; ATTEND Orthopaedic Surgery